=== PATIENT | female | born 1980 | race Caucasian/White ===

== ENCOUNTER 2018-08-26 07:28 | Emergency (ER) | payer MEDICAID ==
[~2018-08-26] VITALS: Ht 160 cm; Wt 72.2 kg
[~2018-08-26 07:28] MED LIST: BENZ-6 PO; FERR-55 PO; PREN1TAB49 BC; PROM6.25 PO
[2018-08-26 07:33] VITALS: BP 145/95; PULSE 97; RESP 18; Ht 160 cm; Wt 72.2 kg
[2018-08-26] MEDS ORDERED: NITR-58 PO (08:08)
--- NOTE | 2018-08-26 08:13 | ERD ---
ER Documentation Chief Complaint Chief Complaint pt has frequent urination and dysuria HPI Patient is a 38-year-old female presents the ER for concerns of dysuria, urinary frequency and urgency times 3 days. Patient denies any fevers or chills, nausea, vomiting, abdominal pain. Patient denies any flank pain. ROS All systems reviewed and are negative except as per history of present illness. Medications Home Meds Active Scripts Nitrofurantoin Monohyd Macrocr* (Macrobid*) 100 Mg Capsr, 100 MG PO BID for 5 Days, CAP Prov:TERESA PEDERSON PA-C 08/26/18 Benzonatate* (Tessalon Perle*) 100 Mg Capsule, 100 MG PO Q8H PRN for COUGH, #30 CAP Prov:LUIS SORENSON PA-C 11/13/15 Promethazine w/Codeine* (Phenergan w/Codeine* Syrup) 5 Ml Syrup, 5 ML PO Q4H PRN for COUGH, #100 ML Prov:LUIS SORENSON PA-C 11/13/15 Reported Medications Ferrous Sulfate* (Ferrous Sulfate*) 325 Mg Tablet, 325 MG PO 12/28/10 Vits W-Ca,Fe,Fa(<1MG) () 1 Tab Tablet, 1 BC D 12/28/10 Allergies Allergies: Coded Allergies: No Known Allergies (Verified Allergy, Unknown, 08/26/18) Uncoded Allergies: NKDA (Adverse Reaction, Unknown, 12/28/10) PMhx/Soc History of Surgery: Yes () Anesthesia Reaction: No Hx Neurological Disorder: No Hx Respiratory Disorders: No Hx Cardiac Disorders: No Hx Psychiatric Problems: No Hx Miscellaneous Medical Probl: No Hx Alcohol Use: No Hx Substance Use: No Hx Tobacco Use: No FmHx Family History: No diabetes Physical Exam Vitals Vital Signs Date Temp Pulse Resp B/P (MAP) Pulse Ox O2 O2 Flow FiO2 Time Delivery Rate 08/26/18 98.6 97 18 145/95 99 07:33 (112) Physical Exam GENERAL: Well-developed, well-nourished female. Appears in no acute distress. HEAD: Normocephalic, atraumatic. EYES: Pupils are equally reactive bilaterally. EOMs grossly intact. No conjunctival erythema. NECK: Supple. No meningismus. Normal range of motion of the neck. LUNG: Clear to auscultation bilaterally. No rhonchi, wheezing, rales or coarse breath sounds. HEART: Regular rate and rhythm. No murmurs, rubs or gallops. ABDOMEN: Soft nondistended. Nontender, positive bowel sounds in all four quadrants. No rebound tenderness, no guarding. (-) McBurney's point tenderness. No CVA tenderness. EXTREMITIES: Equal pulses bilaterally. No peripheral clubbing, cyanosis or edema. No unilateral leg swelling. NEUROLOGIC: Alert and oriented. Moving all four extremities without any difficulty. Normal speech. Steady gait. SKIN: Normal color. Warm and dry. No rashes or lesions. Results 24 hrs Laboratory Tests Test 08/26/18 08:05 Bedside Urine pH (LAB) 7.0 Bedside Urine Protein (LAB) Negative Bedside Urine Glucose (UA) Negative Bedside Urine Ketones (LAB) Negative Bedside Urine Blood 3+ Bedside Urine Nitrite (LAB) Negative Bedside Urine Leukocyte Esterase (L Negative Procedures/MDM MEDICAL DECISION MAKING: This is a 38-year-old female presents the ER for concerns of dysuria, urinary frequency and urgency times 4 days. Vital signs were reviewed. Patient was afebrile. UA showed 3+ blood.. Urine was negative. At this time, patient presentation was consistent with dysuria. Will treat patient with concerns for UTI. Low suspicion for pyelonephritis, nephrolithiasis, appendicitis, diverticulitis, constipation, ectopic , PID, ovarian torsion, or tubo-ovarian abscess. PRESCRIPTIONS: Macrobid DISCHARGE: At this time, patient is stable for discharge and outpatient management. I have instructed the patient to follow-up with his/her primary care physician in 1-2 days. Patient should repeat UA in 2 weeks to check for resolution of urinary tract infection. If symptoms persist, patient may need to see a specialist for further examinations and testing. I have instructed the patient to promptly return to the ER at any time for any new or worsening symptoms including increased pain, fever, nausea, vomiting, urinary changes or weakness. The patient and/or family expressed understanding of and agreement with this plan. All questions were answered. Home care instructions were provided. Disclaimer: Inadvertent spelling and grammatical errors are likely due to EHR/dictation software use and do not reflect on the overall quality of patient care. Also, please note that the electronic time recorded on this note does not necessarily reflect the actual time of the patient encounter. Departure Diagnosis: Primary Impression: Dysuria Condition: Fair Patient Instructions: Understanding Urinary Tract Infections (UTIs) Referrals: ANDRE ROWLEY MD (PCP) Additional Instructions: Llame al doctor MAANA y onelia baylee JENNIFER PARA DENTRO DE 1-2 [place].Dgale a la secretaria que nosotros le instruimos hacer esta jennifer.Avise o llame si campo condicin se empeora antes de la jennifer. Regresa aqui si peor o no mejor. TERESA PEDERSON PA-C Aug 26, 2018 08:13
== END 2018-08-26 08:37 | disposition home or self-care (01) ==
LOC: FTE 07:28
DX: R30.0 Dysuria (principal)
CPT/HCPCS: 81003; 81025; Z7502; 99283